=== PATIENT | male | born 1950 | race African-American/Black ===

== ENCOUNTER 2018-11-24 18:34 | Observation (INO) | payer MEDICARE ==
--- NOTE | 2018-11-24 19:03 | RAD ---
FExam: Chest one view HISTORY:Pain Comparison: None FINDINGS: Lungs: Hyperinflated. No consolidation. Nonspecific nodular density projects at the mid left lung. Cardiac silhouette: Normal size Pulmonary vessels: Normal Pleural Spaces: Clear Pneumothorax: None Osseous abnormalities: None of acuity. IMPRESSION: No focal consolidation. Nodular density projects at the mid left lung, nonspecific. The next step in imaging evaluation shoul d be a two-view chest to evaluate for persistence of this finding, as this could relate to superimpos ition of external structures.
[2018-11-24 19:12] LABS: #Basophils 0.1 thou/uL (0.0-0.2); #Eosinphils 0.1 thou/uL (0.0-0.7); #Lymphocytes 2.2 thou/uL (1.20-3.40); #Monocytes 0.8 thou/uL (0.11-0.59); #Neutrophils 6.4 thou/uL (1.40-6.50); %Eosinophils 0.6 % (0.0-10.0); %Lymphocytes 22.6 % (21.0-51.0); %Monocytes 8.7 % (0.0-10.0); %Neutrophils 67.2 % (42.0-75.0); Mean Corpuscular HGB CONC 32.3 g/dL (32.0-36.0); Mean Corpuscular Hemoglobin 30.3 pg (27.0-31.0); Mean Corpuscular Volume 93.9 fL (78.0-98.0); Mean Platelet Volume 8.6 fL (7.4-10.4); Platelet Count 188 thou/uL (130-400); RBC Distribution Width 12.3 % (11.5-14.5); Red Blood Cell (RBC) Count 4.95 mill/uL (4.70-6.10); White Blood Cell (WBC) Count 9.6 thou/uL (4.8-10.8)
[2018-11-24 19:34] LABS: ALT (SGPT) 10 U/L (8-55); AST (SGOT) 12 U/L (5-34); Alkaline Phosphatase 78 U/L (40-150); Anion Gap 14 mmol/L (10-20); BUN (Urea Nitrogen) 21 mg/dL (8.4-25.7); Bilirubin, Total 0.2 mg/dL (0.2-1.2); CK (CPK) 84 U/L (30-200); Calc. Creatinine Clearance 0 mL/min (70-130); Calcium 10.3 mg/dL (7.8-10.44); Carbon Dioxide 28 mmol/L (23-31); Chloride 97 mmol/L (98-107); Estimated GFR-MDRD 47; Globulin 4.2 g/dL (2.4-3.5); Glucose 209 mg/dL (80-115); Lipase 195 U/L (8-78); Potassium 4.6 mmol/L (3.5-5.1); Protein, Total 8.2 g/dL (5.8-8.1); Sodium 134 mmol/L (136-145)
[2018-11-24] MEDS ORDERED: Morphine 4 MG/ML VIAL ONE (20:50)
[2018-11-24] MEDS ORDERED: Lidocaine Viscous Sol 2% 15 ml UD Cup ONE (21:39)
[2018-11-24] MEDS ORDERED: Mag-Al 1200 mg/1200 mg/30 ML UDCUP ONE (21:39)
[2018-11-24] MEDS ORDERED: hydrALAZINE 20 MG/ML VIAL SLOW IVP PRN (23:25)
[2018-11-25] MEDS ORDERED: Ondansetron PF 4 MG/2 ML Vial IVP PRN ×2 (00:02→01:10)
[2018-11-25] MEDS ORDERED: Sodium Chloride 0.9% 1,000 ML IV SCH (00:02)
[2018-11-25] MEDS ORDERED: Ondansetron ODT 4 MG TAB SL PRN (00:02)
[2018-11-25] MEDS ORDERED: Morphine 4 MG/ML VIAL SLOW IVP PRN (00:03)
[2018-11-25 00:29] VITALS: BMI 22.4
[2018-11-25] MEDS ORDERED: Dextrose 5% in Water 1,000 ML IV PRN (01:10)
[2018-11-25] MEDS ORDERED: Dextrose 50% Abboject 50 ML SYRINGE SLOW IVP PRN (01:10)
[2018-11-25] MEDS ORDERED: hydrALAZINE 20 MG/ML VIAL SLOW IVP PRN (01:10)
[2018-11-25] MEDS ORDERED: Acetaminophen 500 MG TAB PO PRN (01:10)
[2018-11-25] MEDS ORDERED: Ondansetron ODT 4 MG TAB PO PRN (01:10)
[2018-11-25] MEDS ORDERED: HumaLOG 300 UNITS/3 ML VIAL SC PRN (01:10)
[2018-11-25] MEDS: Sodium Chloride 0.9% 1,000 ML IV SCH ×2 (01:16→12:04)
[2018-11-25] MEDS: HumaLOG 300 UNITS/3 ML VIAL SC PRN (06:08)
[2018-11-25 07:52] LABS: Hemoglobin A1c 7.8 % (4.0-6.0)
[2018-11-25 07:55] LABS: Hemoglobin 14.4 g/dL (14.0-18.0); Mean Corpuscular HGB CONC 32.2 g/dL (32.0-36.0); Mean Corpuscular Hemoglobin 29.4 pg (27.0-31.0); Mean Corpuscular Volume 91.5 fL (78.0-98.0); Mean Platelet Volume 8.8 fL (7.4-10.4); Platelet Count 185 thou/uL (130-400); RBC Distribution Width 12.2 % (11.5-14.5); Red Blood Cell (RBC) Count 4.89 mill/uL (4.70-6.10); White Blood Cell (WBC) Count 8.4 thou/uL (4.8-10.8)
[2018-11-25] MEDS: Famotidine/PF 20 mg/2ml Vial SLOW IVP SCH (08:16)
--- NOTE | 2018-11-25 08:16 | ULT ---
RIGHT UPPER QUADRANT ULTRASOUND: INDICATION: History of pancreatitis. FINDINGS: The gallbladder is surgically absent. The common bile duct measures 8.6 mm. This measured [address] of the abdomen dated 05/23/2016. No focal hepatic lesion is evident. The right kidney haresh ured 9.1 cm in length. No hydronephrosis is evident. Main pancreatic duct was 2 mm, which is within normal limits at the level of the pancreatic head. No definite drainable fluid collection was gross ly evident. IMPRESSION: 1. Cholecystectomy. 2. Common bile duct measuring up to 8.6 mm can be seen in post cholecystectomy states. POS: BH
[2018-11-25 08:21] LABS: ALT (SGPT) 11 U/L (8-55); AST (SGOT) 12 U/L (5-34); Albumin 3.7 g/dL (3.4-4.8); Alkaline Phosphatase 71 U/L (40-150); Anion Gap 12 mmol/L (10-20); BUN (Urea Nitrogen) 16 mg/dL (8.4-25.7); Bilirubin, Total 0.4 mg/dL (0.2-1.2); Calc. Creatinine Clearance 49 mL/min (70-130); Calcium 9.5 mg/dL (7.8-10.44); Carbon Dioxide 23 mmol/L (23-31); Cardiac Risk 4.7 (Less than 4.5); Chloride 104 mmol/L (98-107); Cholesterol 164 mg/dl (< 200 Desired); Estimated GFR-MDRD 64; Globulin 3.9 g/dL (2.4-3.5); Glucose 222 mg/dL (80-115); HDL Cholesterol 35 mg/dL (>60 Neg Risk); LDL Cholesterol, Calculated 106 mg/dL; Potassium 4.3 mmol/L (3.5-5.1); Protein, Total 7.6 g/dL (5.8-8.1); Sodium 135 mmol/L (136-145); Triglycerides 114 mg/dL (Less than 150)
[2018-11-25 08:32] LABS: Large Platelets SLIGHT; Lymphocytes 13 % (21-51); MDiff Complete? YES; Monocytes 15 % (0-10); Neutrophil 68 % (42-75); Platelet Morphology Comment Appears Adequate; RBC Morphology Normal; Reactive Lymphocytes 4 % (0-10)
[2018-11-25] MEDS: Primidone 50 MG TAB PO SCH ×2 (11:09→12:05)
[2018-11-25] MEDS: Losartan/Hydrochlorothiazide 100 mg/25 mg Tablet PO SCH ×2 (11:09→12:05)
[2018-11-25] MEDS: Morphine 4 MG/ML VIAL SLOW IVP PRN (21:25)
--- NOTE | 2018-11-25 23:00 | CON ---
DATE OF CONSULTATION: 11/25/2018 REASON FOR CONSULTATION: Pancreatitis. HISTORY OF PRESENT ILLNESS: Juanita Garcia is a very pleasant 68-year-old gentleman, who was admitted to the hospital last night with what appears to be an episode of recurrent acute pancreatitis. He has been previously seen by my GI colleague, Dr. Froilan Almendarez. He has a prior history of hepatitis C genotype 2, which was successfully eradicated with Sovaldi and Ribavirin several years ago. He also has a history of recurrent episodes of pancreatitis several episodes over the past 10 years. It looks like the last episode was back in 2016. He says typically episodes will last about 3 days. He does not really have symptoms in between episodes. He does not drink alcohol. He did not have any recent medication changes. About 5 days ago, he started having intermittent pain in the epigastrium, sometimes radiating up into the chest area. This is associated with nausea, though no vomiting. He was trying to just manage this at home over the past few days, but the pain significantly worsened yesterday prompting his presentation. His lipase was noted to be elevated to 195, and he was also found to be dehydrated with some degree of acute kidney injury with creatinine up to 1.75. LFTs were normal. Overnight, he received IV fluid hydration and analgesia. Today, he is feeling quite a bit better. 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 He has remained hemodynamically stable. His creatinine has dropped down to 1.34, and lipase has also declined to 137. REVIEW OF SYSTEMS: Full review of systems including constitutional, head, eyes, ears, nose, throat, GI, , cardiovascular, respiratory, musculoskeletal, neurologic systems is negative except as noted in the HPI. PAST MEDICAL HISTORY: Diabetes type 2, hypertension, hyperlipidemia, cholecystectomy, recurrent pancreatitis attacks, last attack 3 years ago. Hepatitis C genotype 2, status post successful eradication with Sovaldi and Ribavirin several years ago, with sustained virologic response. ALLERGIES: SHAYY INHIBITORS. OUTPATIENT MEDICATIONS: 1. Metformin. 2. Primidone. 3. Pravastatin. 4. Protonix 40 mg daily. 5. Losartan/hydrochlorothiazide. 6. Glimepiride. 7. Vitamin D3. SOCIAL HISTORY: No smoking, alcohol, or drug use. FAMILY HISTORY: Noncontributory. PHYSICAL EXAMINATION: VITAL SIGNS: Temperature 98.1, pulse 97, blood pressure 115/90, 98% oxygen saturation on room air. GENERAL: A 68-year-old man, lying in bed comfortably, in no distress. MENTAL: Alert, fully oriented, pleasant, conversational, can give a detailed coherent history. SKIN: No jaundice. No rashes were palpable. HEENT: Eyes, no scleral icterus. Extraocular movements intact. ENT, mucous membranes moist. No oral lesions. LYMPH: No submandibular or supraclavicular lymphadenopathy. THYROID: Nontender to palpation. HEART: Regular rate and rhythm. LUNGS: Clear to auscultation bilaterally. ABDOMEN: Bowel sounds are hypoactive, but present. The abdomen is soft. There is tenderness to palpation in the epigastrium, but no guarding, or rebound tenderness. EXTREMITIES: No peripheral edema. VESSELS: Radial pulses 2+ bilaterally. NEURO: Cranial nerves 2 through 12 intact bilaterally. No focal deficits. LABORATORY STUDIES: WBC 8.4, hemoglobin 14.4, platelets 185. Sodium 135, potassium 4.3, BUN 16, creatinine 1.34. Hemoglobin A1c 7.8%, glucose 160, lipase 137. LFTs all normal with total bilirubin 0.4, alkaline phosphatase 71, AST 12, ALT 11, albumin 3.7. Troponin is negative. IMAGING STUDIES: Chest x-ray showed nodular density in the left mid lung, with two-view chest x-ray recommended. Abdominal ultrasound showed absent gallbladder, common bile duct 8.6 mm in diameter, which may just represent post cholecystectomy reservoir effect. Pancreatic duct was visualized and was noted to be normal at 2 mm. ASSESSMENT PLAN: 1. Acute recurrent pancreatitis. 2. Acute kidney injury, improved since admission. The patient's presentation does indeed seem consistent with an acute attack recurrent pancreatitis. Discussed with the patient that all of his lab parameters are favorable, particularly with improvement in the acute kidney injury and normal LFTs. He is responding to supportive care. Continue IV fluids and analgesia as needed. I would keep him n.p.o. for the rest of the day, but tomorrow morning if he is doing well, his diet could be advanced to clear liquids and then further as tolerated. No further recommendations from a GI perspective at this time. 3. Nodular density in the left mid lung on chest x-ray. I am not sure if this is meaningful. The Radiologist had recommended a two-view chest x-ray imaging. I would leave this up to the discretion of the primary service. Job ID: [id number]
[2018-11-26] MEDS: Sodium Chloride 0.9% 1,000 ML IV SCH ×4 (04:09→22:25)
--- NOTE | 2018-11-26 07:47 | HP ---
PRIMARY CARE PROVIDER: Errol Richardson MD. CHIEF COMPLAINT: Abdominal pain. HISTORY OF PRESENT ILLNESS: This is a 68-year-old male who presents to [facility] Emergency Department complaining of central and upper abdominal pain over the last 5 days. The patient states the pain has increased over the last several days, becoming intolerable with associated nausea. The patient admits to history of recurrent pancreatitis, usually spontaneous and idiopathic. The patient has been evaluated in the past and sees Dr. Almendarez for GI Services including screening colonoscopy exams. The patient states he was last admitted for pancreatitis approximately 4 years prior to this evaluation at the [facility]. The patient denies any change to his chronic medication regimen, travel history, chemical exposure, family members with similar symptoms, or fatty meals. The patient is unsure of his cholesterol status and denies any alcohol intake. The patient attempted to reposition himself for relieving his symptoms, however, this was unsuccessful. The patient also took Mylanta [id number] without success. In the emergency room, the patient underwent general evaluation with screening metabolic survey showing elevated lipase of 195. The patient was also noted with elevated creatinine of 1.75. The patient was treated in the emergency department with GI cocktail as well as morphine sulfate 4 mg IV push and intravenous normal saline x1 L. PAST MEDICAL HISTORY: 1. Chronic pancreatitis, idiopathic. 2. Diabetes mellitus type 2. 3. Hypertension. 4. Dyslipidemia. PAST SURGICAL HISTORY: Status post cholecystectomy. CURRENT MEDICATIONS: 1. Vitamin D3 at 1000 units p.o. daily. 2. Amaryl 2 mg p.o. q.a.m. 3. Losartan/hydrochlorothiazide 100/25 mg 1 tablet p.o. q.a.m. 4. Metformin 1000 mg p.o. b.i.d. 5. Protonix 40 mg p.o. daily. 6. Pravachol 40 mg p.o. q.a.m. 7. Mysoline 50 mg p.o. q.a.m. ALLERGIES: TO SHAYY INHIBITORS. FAMILY HISTORY: Positive for hypertension. SOCIAL HISTORY: Resides in [place], [place]. Retired. No current alcohol, tobacco, or illicit drug use. Functional of all activities of daily living. REVIEW OF SYSTEMS: CONSTITUTIONAL: Negative for weight loss or gain, ability to conduct usual activities. SKIN: Negative for rash, itching. EYES: Negative for double vision, pain. ENT/MOUTH: Negative for nose bleeding, neck stiffness, pain, tenderness. CARDIOVASCULAR: Negative for palpitations, dyspnea on exertion, orthopnea. RESPIRATORY: Negative for shortness of breath, wheezing, cough, hemoptysis, fever or night sweats. GASTROINTESTINAL: Negative for poor appetite, abdominal pain, heartburn, nausea, vomiting, constipation, or diarrhea. GENITOURINARY: Negative for urgency, frequency, dysuria, nocturia. MUSCULOSKELETAL: Negative for pain, swelling. NEUROLOGIC/PSYCHIATRIC: Negative for anxiety, depression. ALLERGY/IMMUNOLOGIC: Negative for skin rash, bleeding tendency. Otherwise negative except as stated per HPI. PHYSICAL EXAMINATION: VITAL SIGNS: On admission, blood pressure 160/106, pulse 104, respiratory rate 17, temperature 99.9 degrees Fahrenheit, O2 saturation 97% on room air. GENERAL APPEARANCE: This is a 68-year-old male, alert and oriented x3, pleasant, conversant, in no acute distress. HEENT: Pupils are equal, round, reactive to light and accommodation. Extraocular muscles are intact. No scleral icterus. No conjunctival injection. Nares patent. OP is clear. Teeth in good repair. NECK: Supple. No cervical adenopathy. No thyromegaly. No carotid bruits. No JVD appreciated. Cervical spine with full active and passive range of motion. No meningeal signs noted. CHEST: Lungs are clear to auscultation bilaterally. CARDIOVASCULAR: S1 and S2 without noted murmur, rub, or gallop. ABDOMEN: Rounded with tenderness to palpation in the mid epigastric region. Mild guarding noted. Bowel sounds are positive in all 4 quadrants. No palpable mass. Previous scars consistent with prior surgical history noted. EXTREMITIES: Warm and dry with fair turgor. No clubbing, cyanosis, or asymmetric edema appreciated. Pulses palpable distally at the dorsalis pedis, posterior tibial, and popliteal arteries bilaterally. Capillary refill less than 2 seconds. NEUROLOGIC: Cranial nerves 2 through 12 are grossly intact. No focal or lateralizing signs appreciated. PERTINENT LABORATORY AND X-RAY FINDINGS: Sodium 134, potassium 4.6, chloride 97, CO2 of 28, BUN 21, creatinine 1.75, estimated GFR of 47, glucose 209, calcium 10.3. LFTs within normal limits. Troponin I negative x1. Albumin 4.0. Lipase 195, previously noted 34 on 02/01/2014. CBC within normal limits. Portable chest x-ray, dated 11/24/2018, showed no focal consolidation. Nodular density at the mid left lung, nonspecific. EKG, dated 11/24/2018, by my interpretation shows sinus tachycardia with heart rates in the low 100s. Attenuated R-waves noted in the precordial leads. Normal axis. Voltage criteria consistent with left ventricular hypertrophy. No acute ST-T wave changes noted. ASSESSMENT AND PLAN: 1. [id number] pancreatitis. The patient will be observed on the medical floor. Exact etiology unclear. We will continue IV fluids. Continue morphine sulfate 4 mg IV q.4 hours p.r.n. Check abdominal ultrasound to rule out obstructive pathology. Check fasting lipid profile in the a.m. Consult GI Service in the a.m. for any further recommendations. N.p.o. except for sips of water. 2. Acute kidney injury on chronic kidney disease, stage 2. Avoid nephrotoxic agents and limit contrast exposure. Continue IV fluids with normal saline. Serial creatinine monitoring. 3. Hypertension. Labile. Suspect secondarily to pain response. Resume home antihypertensive regimen and monitor clinical response. P.r.n. hydralazine and labetalol. 4. Diabetes mellitus type 2. Insulin sliding scale for reflexive coverage. Serial Accu-Cheks q.6 hours. Hold metformin and glipizide due to acute kidney injury. 5. Prophylaxis. Sequential compression devices while in bed. Pepcid 20 mg IV q.12 hours. 6. Code status is full. Surrogate medical decision maker is the patient's spouse. Job ID: [id number]
[2018-11-26] MEDS: Famotidine/PF 20 mg/2ml Vial SLOW IVP SCH (08:01)
[2018-11-26] MEDS: Losartan/Hydrochlorothiazide 100 mg/25 mg Tablet PO SCH (08:01)
[2018-11-26] MEDS: Primidone 50 MG TAB PO SCH (08:02)
[2018-11-26] MEDS: HumaLOG 300 UNITS/3 ML VIAL SC PRN (12:18)
[2018-11-26] MEDS: Morphine 4 MG/ML VIAL SLOW IVP PRN (12:25)
--- NOTE | 2018-11-26 14:17 | PRG ---
DATE OF SERVICE: 11/26/2018 SUBJECTIVE: The patient feels better with less pain. No nausea or vomiting. So far, he is tolerating clear liquids. PHYSICAL EXAMINATION: VITAL SIGNS: Temperature is 97.9, blood pressure 146/81, and pulse of 86. GENERAL: He is alert, conversant, no distress. HEENT: Shows anicteric sclerae. Oropharynx is moist. NECK: Supple. CV: Shows normal S1 and S2. Regular rate and rhythm. CHEST: Shows breath sounds. ABDOMEN: Soft. No tenderness on palpation. He has active bowel sounds. EXTREMITIES: Show no edema. ASSESSMENT: 1. Acute pancreatitis, recurrent. No complication noted. Etiology is unknown as he does not drink and there is no evidence of cholelithiasis on ultrasound. 2. Diabetes. 3. Hypertension. RECOMMENDATIONS: 1. Advanced diet as tolerated. 2. We will obtain MRI to look at the pancreas more closely to rule out any structural cause or cystic neoplasm. Job ID: [id number]
--- NOTE | 2018-11-26 21:43 | PDOC.PN ---
- Subjective Encounter Start Date: 11/26/18 Encounter Start Time: 14:30 Patient seen and examined for Acute Pancreatitis. Abd pain improving. No new complaints. No overnight events - Objective Resuscitation Status - Order Detail: 11/25/18 01:03 Resuscitation Status Routine Resuscitation Status: FULL: Full Resuscitation MAR Reviewed: Yes Vital Signs & Weight: Vital Signs (12 hours) Temp Pulse Resp BP BP Pulse Ox 11/26/18 20:00 98.2 F 89 18 125/86 98 11/26/18 16:01 98 F 80 17 130/87 95 11/26/18 11:56 97.9 F 86 17 146/81 H 98 Weight Admit Weight 147 lb 8 oz Weight 147 lb 8 oz I&O: 11/25/18 11/26/18 11/27/18 06:59 06:59 06:59 Intake Total 643.5 1143 2100 Output Total 350 1150 1050 Balance 293.5 -7 1050 Result Diagrams: 11/25/18 07:20 11/25/18 07:20 Additional Labs: Accuchecks 11/26/18 11/26/18 11/26/18 19:54 16:05 11:59 POC Glucose 159 H 124 H 300 H 11/26/18 11/26/18 05:08 00:42 POC Glucose 153 H 153 H Phys Exam - Physical Examination Constitutional: NAD Respiratory: no wheezing, no rhonchi Cardiovascular: RRR, no rub Gastrointestinal: soft, non-tender, positive bowel sounds Musculoskeletal: no edema Neurological: moves all 4 limbs Dx/Plan - Plan DVT proph w/SCDs 1. Acute on chronic pancreatitis ?etiology 2. ELLIE on CKD 2 3. HTN 4. DM2/Dyslipidemia PLAN: Cont Clear liqd diet - advance to full liqd in AM MRI pabd per GI Cont IVF Pain control Cont sliding scale Cont other meds as below AM labs Review of Systems - Review of Systems Respiratory: negative: Cough, Dry, Shortness of Breath, Hemoptysis, SOB with Excertion, Pleuritic Pain, Sputum, Wheezing Cardiovascular: negative: chest pain, palpitations, orthopnea, paroxysmal nocturnal dyspnea, edema, light headedness, other - Medications/Allergies Allergies/Adverse Reactions: Allergies Allergy/AdvReac Type Severity Reaction Status Date / Time SHAYY Inhibitors Allergy Verified 11/25/18 03:58 Medications: Current Medications Acetaminophen (Tylenol) 1,000 mg PO Q6H PRN PRN Reason: Mild Pain (1-3) Dextrose/Water (Dextrose 50%) 25 gm SLOW IVP PRN PRN PRN Reason: Hypoglycemia Famotidine (Pepcid) 20 mg SLOW IVP [facility] Last Admin: 11/26/18 08:01 Dose: 20 mg Glucagon (Glucagon) 1 mg IM PRN PRN PRN Reason: Hypoglycemia HCTZ/Losartan Potassium (Hyzaar 100/25) 1 tab PO [facility] Last Admin: 11/26/18 08:01 Dose: 1 tab Hydralazine HCl (Apresoline) 10 mg SLOW IVP Q4H PRN PRN Reason: SBP > 180 and HR < 70 Dextrose/Water (D5w) 1,000 mls @ 0 mls/hr IV .Q0M PRN PRN Reason: Hypoglycemia Sodium Chloride (Normal Saline 0.9%) 1,000 mls @ 100 mls/hr IV .Q10H [facility] Last Admin: 11/26/18 12:28 Dose: 1,000 mls Insulin Human Lispro (Humalog) 0 units SC .MILD SLIDING SCALE PRN PRN Reason: Mild Correctional Scale Last Admin: 11/26/18 12:18 Dose: 4 unit Insulin Human Lispro (Humalog) 0 units SC .BEDTIME SLIDING SC PRN PRN Reason: Bedtime Correctional Scale Morphine Sulfate (Morphine) 4 mg SLOW IVP Q4H PRN PRN Reason: Moderate to Severe Pain (6-10) Last Admin: 11/26/18 12:25 Dose: 4 mg Ondansetron HCl (Zofran Odt) 4 mg PO Q6H PRN PRN Reason: Nausea/Vomiting Last Admin: 11/26/18 12:25 Dose: 4 mg Ondansetron HCl (Zofran) 4 mg IVP Q6H PRN PRN Reason: Nausea/Vomiting Last Admin: 11/25/18 21:25 Dose: 4 mg Primidone (Mysoline) 50 mg PO [facility] Last Admin: 11/26/18 08:02 Dose: 50 mg Sodium Chloride (Flush - Normal Saline) 10 ml IVF Q12HR [facility] Last Admin: 11/26/18 19:38 Dose: Not Given Sodium Chloride (Flush - Normal Saline) 10 ml IVF PRN PRN PRN Reason: Saline Flush
[2018-11-27 06:54] LABS: #Eosinphils 0.1 thou/uL (0.0-0.7); #Lymphocytes 1.6 thou/uL (1.20-3.40); #Monocytes 0.7 thou/uL (0.11-0.59); #Neutrophils 4.9 thou/uL (1.40-6.50); %Basophils 0.1 % (0.0-1.0); %Eosinophils 1.3 % (0.0-10.0); %Monocytes 9.6 % (0.0-10.0); Hemoglobin 13.8 g/dL (14.0-18.0); Mean Corpuscular HGB CONC 31.6 g/dL (32.0-36.0); Mean Corpuscular Hemoglobin 29.9 pg (27.0-31.0); Mean Corpuscular Volume 94.6 fL (78.0-98.0); Mean Platelet Volume 8.4 fL (7.4-10.4); Platelet Count 171 thou/uL (130-400); RBC Distribution Width 12.3 % (11.5-14.5); White Blood Cell (WBC) Count 7.3 thou/uL (4.8-10.8)
[2018-11-27 07:10] LABS: ALT (SGPT) 11 U/L (8-55); AST (SGOT) 12 U/L (5-34); Albumin 3.3 g/dL (3.4-4.8); Alkaline Phosphatase 66 U/L (40-150); Anion Gap 13 mmol/L (10-20); BUN (Urea Nitrogen) 12 mg/dL (8.4-25.7); Bilirubin, Total 0.3 mg/dL (0.2-1.2); Calc. Creatinine Clearance 50 mL/min (70-130); Calcium 8.7 mg/dL (7.8-10.44); Carbon Dioxide 22 mmol/L (23-31); Chloride 106 mmol/L (98-107); Estimated GFR-MDRD 65; Globulin 3.5 g/dL (2.4-3.5); Glucose 169 mg/dL (80-115); Lipase 75 U/L (8-78); Magnesium 1.6 mg/dL (1.6-2.6); Potassium 4.4 mmol/L (3.5-5.1); Protein, Total 6.8 g/dL (5.8-8.1); Sodium 137 mmol/L (136-145)
--- NOTE | 2018-11-27 08:44 | MRI ---
MRI Abdomen W WO Con History: [Recurrent pancreatitis] Comparison: CT abdomen and pelvis 2016 Findings: Chronic mild dilatation of the main pancreatic duct. Majority of the pancreatic duct draina ges in the minor papilla but the uncinate process and pancreatic head and draining into the major pap illa. The common bile duct measures up to 6 mm, normal in a patient of this age with prior cholecyste ctomy. Multiple cysts of both kidneys, small. There is appears be some layering hemorrhage within an exophyt ic cyst interpolar left kidney without significant enhancement. No hydronephrosis. Aortic contour is nonaneurysmal. No dilated loops of large or small bowel. No abnormal hepatic parenchymal enhancement. Portal vein is patent. Impression: 1. Mildly chronically dilated main pancreatic duct with majority of the tail and body drainage into t he minor papilla separate from the confluence of the common bile duct. The uncinate process and porti on of the pancreatic head is drained by the major papilla through a small accessory duct. 2. Likely a hemorrhagic left interpolar exophytic posterior cortex cysts with layering proteinaceous debris.
[2018-11-27] MEDS: Primidone 50 MG TAB PO SCH (09:23)
[2018-11-27] MEDS: Losartan/Hydrochlorothiazide 100 mg/25 mg Tablet PO SCH (09:23)
[2018-11-27] MEDS: Famotidine/PF 20 mg/2ml Vial SLOW IVP SCH (09:23)
[2018-11-27] MEDS: Sodium Chloride 0.9% 1,000 ML IV SCH ×2 (09:29→12:53)
[2018-11-27] MEDS: HumaLOG 300 UNITS/3 ML VIAL SC PRN (13:28)
[2018-11-27 16:11] VITALS: BP 153/87; TEMP 97.9
--- NOTE | 2018-11-27 22:34 | DIS ---
DATE OF ADMISSION: 11/24/2018 DATE OF DISCHARGE: 11/27/2018 DISCHARGE DIAGNOSES: 1. Acute on chronic pancreatitis. 2. Acute kidney injury, improved with IV fluids, on chronic kidney disease stage 2. 3. Hypertension. 4. Diabetes mellitus. 5. Dyslipidemia. CONSULTANTS: Dr. Froilan Almendarez, Gastroenterology Service. HOSPITAL COURSE: The patient was a 68-year-old male with a few year history of pancreatitis who got admitted to the hospital because of the abdominal pain. Apparently, the pain was associated with some nausea. It was going on for several days prior to the time when he made decision about coming to the emergency room. At the emergency room, his lab work showed normal electrolytes, creatinine was up to 1.75, BUN 21, glucose 209. LFTs were within normal limits. Lipase 195. He was seen in the emergency department with GI cocktail as well as morphine sulfate and intravenous normal saline. He got admitted to the medical floor for further management. At the time of admission, his EKG showed sinus tachycardia with heart rates in the low 100, attenuated R-waves noted in the precordial leads. There was normal axis. Voltage criteria consistent with left ventricular hypertrophy. There were no acute ST-T wave changes noted. Portable chest x-ray showed no focal consolidation, some nodular density in the mid left lung, which was nonspecific. Ultrasound of the abdomen was done which showed, 1. Cholecystectomy. 2. Common bile duct measuring up to 8.6 mm. He was seen by Dr. Rene for gastrointestinal evaluation, was on IV fluids and analgesics IV. He was kept n.p.o. and gradually his diet was advanced as tolerated. His lipase went down to normal range. The patient was followed by Dr. Almendarez, his primary gastrointestinal specialist, who recommended MRI which was done and showed, 1. Mildly chronically dilated main pancreatic duct with majority of the tail and body drainage into the minor papilla separate from the confluence of the common bile duct. The uncinate process and portion of the pancreatic head were drained by the major papilla through a small accessory duct. 2. Likely hemorrhagic left interpolar exophytic posterior cortex cyst with layering proteinaceous debris. The patient is doing well. He tolerates his food without any pain. He is able to ambulate without any problems. His vitals; blood pressure is 134/86, pulse is 96, temperature is 98, respirations 18, and O2 saturation is 99% on room air. He is not in any distress. He is seen and examined before his discharge. He is discharged to home. ACTIVITIES: As tolerated. DIET: Diabetic. HOME MEDICATIONS: 1. Metformin 1000 mg twice a day. 2. Primidone 50 mg q.a.m. 3. Pravastatin 40 mg q.a.m. 4. Pantoprazole 40 mg q.a.m. 5. Losartan/hydrochlorothiazide 100/25 mg one tablet once a day. 6. Amaryl 2 mg daily. 7. Vitamin D3 1000 units once a day. FOLLOWUP: The patient is going to follow up with primary care physician in [address] Almendarez from 2-4 weeks. The patient is seen and examined before he is discharged. TIME SPENT: Discharge time is less than 30 minutes. Job ID: [id number]
--- NOTE | 2018-12-01 15:57 | EKG ---
Test Reason : Blood Pressure : / mmHG Vent. Rate : 106 BPM Atrial Rate : 106 BPM P-R Int : 158 ms QRS Dur : 084 ms QT Int : 324 ms P-R-T Axes : 064 010 053 degrees QTc Int : 430 ms Sinus tachycardia Moderate voltage criteria for LVH, may be normal variant Nonspecific T wave abnormality Abnormal ECG Confirmed by HARRY SHEIKH, ALEIDA ([id number]), editor index NABEEL VELASQUEZ ([id number]) on 12/01/2018 3:57:10 PM Referred By: Confirmed By:ALEIDA MCDONALD MD
== END 2018-11-27 16:09 | disposition home or self-care (01) ==
LOC: ERS 18:34 → T4-B 23:10
PROVIDERS: ADMIT Family Medicine; ATTEND Family Medicine
DX: K85.90 Acute pancreatitis without necrosis or infection, unspecified (principal); K86.1 Other chronic pancreatitis; I12.9 Hypertensive chronic kidney disease with stage 1 through stage 4 chronic kidney disease, or unspecified chronic kidney disease; E11.22 Type 2 diabetes mellitus with diabetic chronic kidney disease; N18.2 Chronic kidney disease, stage 2 (mild); N17.9 Acute kidney failure, unspecified; E78.5 Hyperlipidemia, unspecified; Z90.49 Acquired absence of other specified parts of digestive tract; Z88.8 Allergy status to other drugs, medicaments and biological substances; Z79.84 Long term (current) use of oral hypoglycemic drugs; Z79.899 Other long term (current) drug therapy
CPT/HCPCS: 71045; 74183; 76705; 80053 ×3; 80061; 82550; 82962 ×3; 83036; 83690 ×3; 83735; 84484; 85007; 85025 ×2; 85027; 93005; 96361 ×4; 96374; 96375 ×2; 96376 ×2; 99285; G0378 ×3; 36415; 36416; 96360; J0360; J2270; J2405; Q0162; S0028

== ENCOUNTER 2019-05-26 18:34 | Inpatient (IN) | payer MEDICARE ==
[~2019-05-26 18:34] MED LIST: ISOVUE-370 76%-LOCM 1 ML ONE
[2019-05-26] MEDS ORDERED: Morphine 4 MG/ML VIAL ONE ×2 (19:11→22:26)
[2019-05-26] MEDS ORDERED: Ondansetron PF 4 MG/2 ML Vial ONE ×2 (19:11→22:27)
--- NOTE | 2019-05-26 19:40 | RAD ---
Portable chest: HISTORY: Chest pain COMPARISON: none FINDINGS: Lung raman are clear. Heart and mediastinum appear unremarkable. Vascularity is normal. Visualized osseous structures unremarkable. IMPRESSION: No acute finding
[2019-05-26 19:43] LABS: #Basophils 0.1 thou/uL (0.0-0.2); #Eosinphils 0.1 thou/uL (0.0-0.7); #Lymphocytes 2.3 thou/uL (1.20-3.40); #Monocytes 0.9 thou/uL (0.11-0.59); #Neutrophils 6.8 thou/uL (1.40-6.50); %Basophils 0.5 % (0.0-1.0); %Eosinophils 0.8 % (0.0-10.0); %Lymphocytes 22.6 % (21.0-51.0); %Monocytes 8.4 % (0.0-10.0); %Neutrophils 67.6 % (42.0-75.0); Hemoglobin 14.3 g/dL (14.0-18.0); Mean Corpuscular HGB CONC 33.3 g/dL (32.0-36.0); Mean Corpuscular Hemoglobin 30.4 pg (27.0-31.0); Mean Corpuscular Volume 91.4 fL (78.0-98.0); Mean Platelet Volume 9.4 fL (7.4-10.4); Platelet Count 180 thou/uL (130-400); RBC Distribution Width 12.3 % (11.5-14.5); Red Blood Cell (RBC) Count 4.71 mill/uL (4.70-6.10); White Blood Cell (WBC) Count 10.1 thou/uL (4.8-10.8)
[2019-05-26 19:57] LABS: ALT (SGPT) 8 U/L (8-55); AST (SGOT) 11 U/L (5-34); Albumin 3.9 g/dL (3.4-4.8); Alkaline Phosphatase 76 U/L (40-110); Anion Gap 14 mmol/L (10-20); BUN (Urea Nitrogen) 21 mg/dL (8.4-25.7); Bilirubin, Total 0.2 mg/dL (0.2-1.2); Calc. Creatinine Clearance 0 mL/min (70-130); Calcium 9.7 mg/dL (7.8-10.44); Carbon Dioxide 29 mmol/L (23-31); Chloride 93 mmol/L (98-107); Estimated GFR-MDRD 52; Glucose 308 mg/dL (80-115); Lipase 602 U/L (8-78); Potassium 4.3 mmol/L (3.5-5.1); Protein, Total 7.9 g/dL (5.8-8.1); Sodium 132 mmol/L (136-145)
--- NOTE | 2019-05-26 21:00 | CT ---
CT ABDOMEN AND PELVIS WITH CONTRAST: Indications: Abdominal pain. History of pancreatis. Comparison: CT abdomen, 2016 FINDINGS: Lung bases are clear. Liver and spleen unremarkable. Post cholecystectomy change. Common bile duct is mildly prominent but stable. Mild prominence to the pancreatic duct is again noted. This was described previously. Pancrea s is otherwise unremarkable. No significant peripancreatic inflammation or fluid. No CT evidence of p ancreatitis. Adrenal glands and kidneys unremarkable. There are two small right renal cysts and a single posterior left renal cyst which appears stable. Kidneys otherwise unremarkable. Small bowel loops have nonspecific distention. Appendix appears normal. Stool throughout the colon. A dawit normal caliber. Nonspecific periaortic lymph nodes appear stable. Urinary bladder distended but otherwise unremarkable. Prostate unremarkable. IMPRESSION: 1. Nonspecific small bowel distention. This could represent nonspecific enteritis. 2. Mild prominence of the common bile duct and pancreatic duct again noted but appears stable. No sig nificant peripancreatic inflammatory change identified. POS: OFF
[2019-05-26 23:24] VITALS: BMI 24.3
[2019-05-26] MEDS ORDERED: Morphine 4 MG/ML VIAL SLOW IVP PRN (23:30)
[2019-05-26] MEDS ORDERED: Ondansetron ODT 4 MG TAB SL PRN (23:31)
[2019-05-26] MEDS ORDERED: Ondansetron PF 4 MG/2 ML Vial IVP PRN (23:31)
[2019-05-27] MEDS ORDERED: Dextrose 50% Abboject 50 ML SYRINGE SLOW IVP PRN (07:51)
[2019-05-27] MEDS ORDERED: Dextrose 5% in Water 1,000 ML IV PRN (07:51)
[2019-05-27] MEDS ORDERED: Primidone 50 MG TAB PO PRN (07:55)
[2019-05-27] MEDS: Sodium Chloride 0.9% 1,000 ML IV SCH ×2 (08:28→17:30)
[2019-05-27] MEDS: Aspirin 81 mg Enteric Coated Tablet PO SCH (08:32)
[2019-05-27] MEDS: Atorvastatin Calcium 10 MG TAB PO SCH (08:32)
[2019-05-27] MEDS: Enoxaparin Sodium 40 MG/0.4 ML SYRINGE SC SCH (08:33)
[2019-05-27] MEDS ORDERED: Pravastatin Sodium 40 MG TAB PO SCH (09:00)
[2019-05-27] MEDS: Losartan/Hydrochlorothiazide 100 mg/25 mg Tablet PO SCH (10:43)
--- NOTE | 2019-05-27 11:31 | HP ---
CHIEF COMPLAINT: Abdominal pain, nausea, and vomiting. HISTORY OF PRESENT ILLNESS: The patient is a 68-year-old male, who started having some nausea and vomiting along with abdominal pain for the last 3 days. He had multiple flare-ups of his pancreatitis. His deputy director, Dr. Almendarez told him that he has bad pancreas. Apparently, he was not able to find any specific etiology for his recurrent pancreatitis. This is probably the 9th or 10th time according to the patient. He had some chills, but not fever. He denied any chest pain. He felt that short of breath and he had some heartburn. PAST MEDICAL HISTORY: Positive for, 1. Chronic pancreatitis. 2. Diabetes mellitus, type 2. 3. Hyperlipidemia. 4. Hypertension. PAST SURGICAL HISTORY: Cholecystectomy. SOCIAL HISTORY: He denies any alcohol use, cigarette smoking, or illicit drug use. FAMILY HISTORY: Father probably of brain aneurysm at the age of 32 and mother is still alive. She lives at the residential. ALLERGIES: SHAYY INHIBITORS. CURRENT MEDICATIONS: Pantoprazole 40 mg once a day, vitamin D once a day, Jardiance 10 mg once a day, metformin 1000 mg twice a day, glipizide 5 mg once a day, losartan/hydrochlorothiazide 100 mg/25 mg one a day, and pravastatin 40 mg at bedtime. REVIEW OF SYSTEMS: All 14 systems were reviewed and symptoms were negative except for those symptoms mentioned in HPI. PHYSICAL EXAMINATION: GENERAL: He is not in any distress during my visit. VITAL SIGNS: Blood pressure is 153/94, O2 saturation is 94% on room air, his temperature is 97.6, pulse 86, and respiratory rate is 16. HEENT: His head is atraumatic and normocephalic. Eyes are PERRLA. Sclerae are nonicteric. Oral mucosa is slightly dry. NECK: Supple. LUNGS: Clear. HEART: S1 and S2 normal. No S3. No S4. ABDOMEN: Tender to palpation mostly in the epigastric area in the center and midportion, some guarding. Bowel sounds are present. EXTREMITIES: No clubbing, cyanosis, or edema. He has palpable pulses on both tibialis posterior and dorsalis pedis arteries similar bilaterally. NEUROLOGICAL: He is alert and oriented x4. There are no any motor or sensory deficits present. Cranial nerves are intact. LABORATORY DATA: Normal CBC. Sodium of 132, potassium 4.3, chloride 93, CO2 of 29, BUN 21, creatinine 1.6, glucose 308. Troponin I 0.016. Normal liver function tests. Globulin 4.0, lipase 602. Electrocardiogram personally reviewed by me showed sinus tachycardia with ventricular beats of 108 with some Q-waves in septal leads. Chest x-ray personally reviewed by me did not show any acute abnormalities. CT of the abdomen personally reviewed by me showed nonspecific small bowel distention with mild prominence of the common bile duct and pancreatic duct again noted but appears stable. No significant peripancreatic inflammatory changes were identified. IMPRESSION: 1. Recurrent pancreatitis. 2. Diabetes mellitus, type 2, uncontrolled. 3. Chronic kidney disease with acute component, stage 3. 4. Hyperlipidemia. 5. Uncontrolled hypertension. PLAN: He is admitted to the medical floor, full admission. Condition is fair. Activity is bedrest and bathroom privileges. IV normal saline 100 mL/h, morphine 4 mg q.2 hours p.r.n. as needed. For the pain, follow up with serial lipases levels every day. Clear liquids for now. Continue his pantoprazole along with losartan, pravastatin, and aspirin. We will start him on insulin based on the sliding scale, which will be mild and Accu- Cheks before meals and at bedtime. Originally emergency room doctor asked for deputy director to see the patient, but I do not see any good reason to consult him at this point. If this gets worse out of hand, we will have him on the case. The patient is going to get DVT prophylaxis with SCDs and Lovenox subcutaneously. Job ID: [id number]
[2019-05-27] MEDS: Morphine 2 MG/ML SYRINGE SLOW IVP PRN ×2 (11:51→20:08)
[2019-05-27] MEDS: HumaLOG 300 UNITS/3 ML VIAL SC PRN ×2 (13:24→21:24)
[2019-05-27] MEDS: Glimepiride 2 MG TAB PO SCH (18:37)
[2019-05-28] MEDS ORDERED: cloNIDine 0.1 MG TAB PO PRN (00:28)
[2019-05-28] MEDS: Morphine 2 MG/ML SYRINGE SLOW IVP PRN ×3 (01:16→20:01)
[2019-05-28] MEDS: Sodium Chloride 0.9% 1,000 ML IV SCH ×3 (01:17→22:47)
[2019-05-28 04:35] LABS: #Eosinphils 0.1 thou/uL (0.0-0.7); #Lymphocytes 2.1 thou/uL (1.20-3.40); #Monocytes 0.8 thou/uL (0.11-0.59); #Neutrophils 5.2 thou/uL (1.40-6.50); %Basophils 0.6 % (0.0-1.0); %Eosinophils 1.4 % (0.0-10.0); %Lymphocytes 25.4 % (21.0-51.0); %Monocytes 9.6 % (0.0-10.0); %Neutrophils 63.1 % (42.0-75.0); Hemoglobin 13.4 g/dL (14.0-18.0); Mean Corpuscular HGB CONC 33.1 g/dL (32.0-36.0); Mean Corpuscular Hemoglobin 30.6 pg (27.0-31.0); Mean Corpuscular Volume 92.4 fL (78.0-98.0); Mean Platelet Volume 8.7 fL (7.4-10.4); Platelet Count 185 thou/uL (130-400); RBC Distribution Width 12.3 % (11.5-14.5); Red Blood Cell (RBC) Count 4.38 mill/uL (4.70-6.10); White Blood Cell (WBC) Count 8.3 thou/uL (4.8-10.8)
[2019-05-28 04:57] LABS: Anion Gap 10 mmol/L (10-20); BUN (Urea Nitrogen) 11 mg/dL (8.4-25.7); Calc. Creatinine Clearance 55 mL/min (70-130); Calcium 9.1 mg/dL (7.8-10.44); Carbon Dioxide 28 mmol/L (23-31); Cardiac Risk 4.2 (Less than 4.5); Chloride 101 mmol/L (98-107); Cholesterol 123 mg/dl (< 200 Desired); Estimated GFR-MDRD 69; Glucose 208 mg/dL (80-115); HDL Cholesterol 29 mg/dL (>60 Neg Risk); LDL Cholesterol, Calculated 69 mg/dL; Lipase 213 U/L (8-78); Potassium 4.3 mmol/L (3.5-5.1); Sodium 135 mmol/L (136-145); Triglycerides 126 mg/dL (Less than 150)
[2019-05-28] MEDS: HumaLOG 300 UNITS/3 ML VIAL SC PRN ×3 (05:28→20:02)
[2019-05-28] MEDS: Atorvastatin Calcium 10 MG TAB PO SCH (08:50)
[2019-05-28] MEDS: Losartan/Hydrochlorothiazide 100 mg/25 mg Tablet PO SCH (08:50)
[2019-05-28] MEDS: Aspirin 81 mg Enteric Coated Tablet PO SCH (08:50)
[2019-05-28] MEDS: Enoxaparin Sodium 40 MG/0.4 ML SYRINGE SC SCH (08:50)
[2019-05-28] MEDS: Glimepiride 2 MG TAB PO SCH ×2 (08:50→17:24)
[2019-05-28] MEDS ORDERED: Dextrose 5% in Water 1,000 ML IV PRN (10:59)
[2019-05-28] MEDS ORDERED: Dextrose 50% Abboject 50 ML SYRINGE SLOW IVP PRN (10:59)
--- NOTE | 2019-05-28 11:36 | PRG ---
DATE OF SERVICE: 05/28/2019 SUBJECTIVE: The patient is seen and examined at the bedside. He is feeling significantly better. The pain is subsided. He is tolerating his clear liquids without any major problem. No nausea. OBJECTIVE: VITAL SIGNS: Blood pressure is 112/73, pulse is 89, respiratory rate is 20, O2 saturation is 98% on room air, and temperature is 98.1. HEENT: His head is atraumatic and normocephalic. Eyes are PERRLA. Sclerae are nonicteric. Conjunctivae are pinkish. Oral mucosa is somewhat dry. NECK: Supple. LUNGS: Clear. HEART: S1 and S2 normal. No S3. No S4. ABDOMEN: Soft. Mildly tender in the epigastric area. No guarding. No masses. EXTREMITIES: No clubbing, cyanosis, or edema. NEUROLOGIC: He is following my commands. He moves his all 4 extremities. There is no any motor or sensory deficits. LABORATORY DATA: Labs showed white count of 8.3, hemoglobin 13.4, hematocrit 40.5, and platelet count 185,000. Sodium of 135, potassium 4.3, chloride 101, CO2 of 28, BUN 11, creatinine 1.25, glycemia is ranging from 208 to 291, lipase is down to 213, and the rest of chemistry is within normal limits. Triglycerides 126. IMPRESSION AND PLAN: Recurrent pancreatitis. He had multiple episodes of that problem in the past. He is improving on clear liquids and IV fluids plus morphine. We are going to advance his diet to full liquids. Continue IV fluids. Continue p.r.n. morphine. Change his sliding scale to moderate since his glycemia is running high more than 200s. We will continue deep venous thrombosis prophylaxis, get him out of bed, and he should be able to get his diet advanced tomorrow and in the next 24 to 48 hours, he should be able to go home. Job ID: [id number]
[2019-05-29] MEDS: Sodium Chloride 0.9% 1,000 ML IV SCH (08:14)
[2019-05-29] MEDS: Glimepiride 2 MG TAB PO SCH (08:15)
[2019-05-29] MEDS: Aspirin 81 mg Enteric Coated Tablet PO SCH (08:15)
[2019-05-29] MEDS: Atorvastatin Calcium 10 MG TAB PO SCH (08:15)
[2019-05-29] MEDS: Enoxaparin Sodium 40 MG/0.4 ML SYRINGE SC SCH (08:15)
[2019-05-29] MEDS: Losartan/Hydrochlorothiazide 100 mg/25 mg Tablet PO SCH (08:15)
[2019-05-29] MEDS: HumaLOG 300 UNITS/3 ML VIAL SC PRN (11:47)
[2019-05-29 14:36] VITALS: BP 148/86; TEMP 98.7
--- NOTE | 2019-05-29 15:45 | DIS ---
DATE OF ADMISSION: 05/26/2019 DATE OF DISCHARGE: 05/29/2019 FINAL DIAGNOSES AT THE TIME OF DISCHARGE: 1. Acute on chronic pancreatitis. 2. Diabetes mellitus. 3. Hyperlipidemia. 4. Uncontrolled hypertension. 5. Chronic kidney disease with acute component stage 3. HOSPITAL COURSE: The patient was a 68-year-old male, who came to the emergency room with nausea and vomiting along with abdominal pain for approximately 3 days prior to this hospitalization. He had multiple flare-ups of his pancreatitis. So far, he does not really think that the etiology of his recurrent pancreatitis is found. He denied any fever, but he had some chills. He denied any chest pain. At the time of emergency room evaluation, his CBC was normal. Sodium 132, potassium 4.3, chloride 93, CO2 of 29, BUN 21, creatinine 1.6. Liver function tests were normal. Electrocardiogram showed sinus tachycardia with ventricular beats of 108 with some Q-wave changes in septal leads. The chest x-ray did not show any acute abnormalities. The CT of the abdomen showed a nonspecific small bowel distention with mild prominence of the common bile duct and pancreatic duct again noted, but appearing stable. There were no significant peripancreatic inflammatory changes. The patient was admitted to the hospital. His lipase was more than 600 at the time of admission, and with IV fluids and got rest and pain management with morphine, his lipase went down to 100 today. We advanced his diet, he tolerated that without any problems. His blood pressure is 146/78, pulse is 85, temperature is 98.0, respiratory rate is 20, and O2 saturation is 97% on room air. He was seen and examined before he was discharged. DISCHARGE DISPOSITION: Home. He is in good condition. His came to pick him up. DIET: He will stay on 2000 calories ADA diet. ACTIVITIES: As tolerated. MEDICATIONS: At the time of discharge, 1. Metformin 1000 mg twice a day. 2. Primidone 50 mg every morning. 3. Pravastatin, which is Pravachol 40 mg once a day. 4. Pantoprazole 40 mg once a day. 5. Losartan/hydrochlorothiazide one tablet every morning. 6. Glimepiride 2 mg twice a day. 7. Vitamin D3 of 1000 units daily. 8. Aspirin 81 mg daily. FOLLOWUP: He is discharged home in good condition. He is going to follow up with his primary care physician in [address] Almendarez in 1 month. Job ID: [id number]
--- NOTE | 2019-05-30 05:58 | PQF ---
[employer] Crystal Reports Winform Viewer TONY EDDY ZBIGNIEW A MD [id number] [facility] [id number] CLINICAL DOCUMENTATION CLARIFICATION FORM: POST DISCHARGE Addendum to original discharge summary date: ____ Late entry note date: __ DATE: 05/30/19 ATTN: Karlos Meza Please exercise your independent, professional judgment in responding to the clarification form. Clinical indicators are provided on the bottom of this form for your review Can you please further specify the diagnosis based on the clinical indicators below? Please check appropriate box(s): [ ] Acute Renal Failure (ARF) / Acute Kidney Injury (ELLIE) [ x ] Acute on Chronic Renal Failure 3 [ ] CKD 3 without ARF/ELLIE [ ] Other diagnosis please specify [ ] Unable to determine In addition, please specify: Present on Admission (POA): [x ] Yes [ ] No [ ] Unable to determine National Kidney Foundation Guidelines for CKD Staging Stage I Kidney damage with normal or increased GFRGFR > 90 Stage IIKidney damage with mildly decreased GFRGFR 60-89 Stage III Kidney damage with moderately decreased GFRGFR 30-59 Stage IVKidney damage with severely decreased GFRGFR 16-29 Stage VKidney failureGFR<15 ESRDEnd Stage Renal DiseaseOn dialysis Acute Renal Failure/Acute Kidney Failure defined as: Increases in SCr by (>) 0.3 mg/dl within 48 hours OR- Increases in SCr by (>) 1.5 times baseline, known or presumed to have occurred within the prior 7 days OR- Urine volume < 0.5 ml/kg/hour for 6 hours (KDIGO supplement 2012 for RIFLE/CRISTIAN criteria) For continuity of documentation, please document condition throughout progress notes and discharge summary. Thank You. CLINICAL INDICATORS - SIGNS / SYMPTOMS / LABS H and P pg.1- start having nausea and vomiting along with abdominal pain H and P pg.2- Creatinine 1.6 PN 05/28 Dr. Orellana- Laboratory Creatinine 1.25 DS pg.1-Chronic kidney disease with acute component stage 3 RISK FACTORS DM type 2- H and P pg.2 hyperlipidemia- H and P pg.2 Uncontrolled Hypertension- H and P pg.2 Recurrent Pancreatitis- H and P pg.2 68 years old male ED Notes 05/26 TREATMENTS: IV Fluids- MAR Lab monitoring- Collected 05/28 (This form is maintained as a part of the permanent medical record) 2014 [employer]. All Rights Reserved Christian [email or web address] [not provided] MTDD
--- NOTE | 2019-05-30 06:03 | PQF ---
[employer] Crystal Reports Winform Viewer TONY EDDY ZBIGNIEW A MD [id number] [facility] [id number] CLINICAL DOCUMENTATION CLARIFICATION FORM: POST DISCHARGE Addendum to original discharge summary date: ____ Late entry note date: __ DATE: 05/30/19 ATTN: Karlos Meza Please exercise your independent, professional judgment in responding to the clarification form. Clinical indicators are provided on the bottom of this form for your review Can you please further specify if Hyponatremia is ruled on or ruled out? Hyponatremia [ x ] Ruled in diagnosis [ ] Continue to treat [ ] Resolved [ ] Ruled out diagnosis [ ] Cannot rule out diagnosis [ ] Other diagnosis please specify [ ] Unable to determine In addition, please specify: Present on Admission (POA): [ x ] Yes [ ] No [ ] Unable to determine For continuity of documentation, please document condition throughout progress notes and discharge summary. Thank You. CLINICAL INDICATORS - SIGNS / SYMPTOMS / LABS Ed Provider 05/26 pg3- mild hyponatremia H and P 05/26pg.1- Laboratory- Sodium of 132 ED Notes 05/26- Presents with abdominal pain ED Notes 05/26- Patient also consistent of nausea, some vomiting and chills RISK FACTORS Recurrent Pancreatitis- PN 05/28 Dr. Orellana pg.1 Hypertension- Ds pg.1 CKD 3- DS pg.1 68 years old male ED Notes 05/26 DM type 2- H and P pg.2 TREATMENTS IV normal saline 100ml/hr- H and P pg.2 Sodium Chloride 10ml IV MAR 05/26 Lab monitoring- Collected 05/28 (This form is maintained as a part of the permanent medical record) 2014 [employer]. All Rights Reserved Christian [email or web address] [not provided] MTDD
--- NOTE | 2019-06-02 02:23 | EKG ---
Test Reason : Blood Pressure : / mmHG Vent. Rate : 108 BPM Atrial Rate : 108 BPM P-R Int : 150 ms QRS Dur : 108 ms QT Int : 380 ms P-R-T Axes : 060 008 081 degrees QTc Int : 509 ms Sinus tachycardia Possible Left atrial enlargement Anteroseptal infarct , age undetermined Left bundle branch block Abnormal ECG Confirmed by HEMALATHA ROBIN M.D. ([id number]), make up editor JERALD STEIN ([id number]) on 06/02/2019 2:23:08 AM Referred By: Confirmed By:HEMALATHA ROBIN M.D.
== END 2019-05-29 14:35 | disposition home or self-care (01) | DRG 439 ==
LOC: ERS 18:34 → T4-B 23:22 → OBSVTOIN 23:22 → T4-B 05-27 06:29
PROVIDERS: ADMIT Hospitalist; ATTEND Hospitalist
DX: K85.90 Acute pancreatitis without necrosis or infection, unspecified (principal); N17.9 Acute kidney failure, unspecified; E87.1 Hypo-osmolality and hyponatremia; K86.1 Other chronic pancreatitis; K21.9 Gastro-esophageal reflux disease without esophagitis; E11.22 Type 2 diabetes mellitus with diabetic chronic kidney disease; E11.65 Type 2 diabetes mellitus with hyperglycemia; I12.9 Hypertensive chronic kidney disease with stage 1 through stage 4 chronic kidney disease, or unspecified chronic kidney disease; N18.3 Chronic kidney disease, stage 3 (moderate); E78.5 Hyperlipidemia, unspecified; Z90.49 Acquired absence of other specified parts of digestive tract; Z88.8 Allergy status to other drugs, medicaments and biological substances; Z79.84 Long term (current) use of oral hypoglycemic drugs; Z79.899 Other long term (current) drug therapy
CPT/HCPCS: 36415; 36416; 71045; 74177; 80048; 80053; 80061; 83690; 84484; 85025; 93005; 96361; 96374; 96375; 96376; J1650; J2270; J2405; Q9966

== ENCOUNTER 2024-01-23 07:04 | Day surgery (SDC) | payer MEDICARE ==
[2024-01-22 12:39] VITALS: BMI 25.0
[2024-01-23] MEDS ORDERED: PROPOFOL 20 ML ONE (09:24)
[2024-01-23] MEDS ORDERED: Lidocaine 1% PF 5 ML VIAL ONE (09:40)
[2024-01-23] MEDS ORDERED: PHENYLEPHRINE-NS 100 MCG/ML 10 ML SYRINGE ONE (09:40)
== END 2024-01-23 10:42 | disposition home or self-care (01) ==
LOC: SDC 07:04
PROVIDERS: ATTEND Internal Medicine Gastroenterology
PROC: 0DJD8ZZ Inspection of Lower Intestinal Tract, Via Natural or Artificial Opening Endoscopic (ICD-10-PCS; principal; 2024-01-23)
DX: Z12.11 Encounter for screening for malignant neoplasm of colon (principal); N40.0 Benign prostatic hyperplasia without lower urinary tract symptoms; I13.0 Hypertensive heart and chronic kidney disease with heart failure and stage 1 through stage 4 chronic kidney disease, or unspecified chronic kidney disease; I50.9 Heart failure, unspecified; N18.9 Chronic kidney disease, unspecified; E10.22 Type 1 diabetes mellitus with diabetic chronic kidney disease; E78.00 Pure hypercholesterolemia, unspecified; Z87.19 Personal history of other diseases of the digestive system; Z90.49 Acquired absence of other specified parts of digestive tract; Z95.810 Presence of automatic (implantable) cardiac defibrillator; Z79.82 Long term (current) use of aspirin; F17.200 Nicotine dependence, unspecified, uncomplicated; Z79.4 Long term (current) use of insulin
CPT/HCPCS: 82962; G0121; J2704; 36416

== ENCOUNTER 2025-03-27 09:29 | Outpatient (CLI) | payer MEDICARE | END 2025-03-27 09:30 | disposition home or self-care (01) | LOC: BICRAD 09:29 | PROVIDERS: ATTEND Internal Medicine Nephrology | DX: N18.5 Chronic kidney disease, stage 5 (principal) | CPT/HCPCS: 71046 ==